=== PATIENT | male | born 1970 | race Caucasian/White ===

== ENCOUNTER → 2025-04-05 15:14 | Emergency (ER) | payer BC, SELFPAY ==
[2025-04-05 15:18] VITALS: BP 140/86; PULSE 100; RESP 20; TEMP 36.7; O2SAT 100
--- OUTSIDE RECORDS SUMMARY | 2025-04-05 15:18 | XMS_ITS | Referral Summary ---
Author Organization [facility] [address] [place] Address [address] [place] [phone] Care Team Providers Care Customer Service Operator Name Role Phone Bart Medrano MD Primary Care Provider [phone] Allergies No known active allergies Medications ALPRAZolam (XANAX) 0.5 mg tablet 12/18/2021 Active sertraline (ZOLOFT) 50 mg tablet Take 1 tablet (50 mg total) by mouth daily 30 tablet 2 01/17/2022 Active omeprazole (PriLOSEC) 40 mg capsule TAKE 1 CAPSULE (40 MG TOTAL) BY MOUTH DAILY. 90 capsule 1 12/16/2022 Active Active Problems Problem Noted Date Diagnosed Date Gastroesophageal reflux disease without esophagi tis 01/17/2022 Chronic left shoulder pain 01/17/2022 JUJU (generalized anxiety disorder) 01/17/2022 Immunizations Immunization Administration Dates Next Due Influenza, Unspecified 02/14/2022(Deferr ed: Patient Refused),01/17/2022(Deferred: Patient Refused),12/20/2021(Deferred: Patient Refused),11/24/2020(Deferred: Patient Refused),11/24/2020(Deferred: Patient Refused),11/24/2020(Deferred: Patient Refused) Social History Tobacco Use Types Packs/Day Years Used Date Smoking Tobacco: Never PHQ-2 Answer Date Recorded PHQ-2 Total Score (If total score is 3 or more points, staff should administer the PHQ-9) 0 01/17/2022 Personal Safety Answer Date Recorded Getting School Help Needed Not on file 02/07 Sex and Gender Information Value Date Recorded Sex Assigned at Not on file Legal Sex Male 10:56 AM BENCH CHEMIST Gender Identity Not on file Sexual Orientation Not on file Last Filed Vital Signs Vital Sign Reading Time Taken Comments Blood Pressure 126/78 01/17/2022 10:22 AM BENCH CHEMIST Pulse 67 01/17/2022 10:22 AM BENCH CHEMIST Temperature 36.9 C (98.5 F) 01/17/2022 10:22 AM BENCH CHEMIST Respiratory Rate - - Oxygen Saturation 98% 01/17/2022 10:22 AM BENCH CHEMIST Inhaled Oxygen Concentration - - Weight 75.8 kg (167 lb 3.2 oz) 01/17/2022 10:22 AM BENCH CHEMIST Height 167.6 cm (5' 6 ) 01/17/2022 10:22 AM BENCH CHEMIST Body Mass Index 26.99 01/17/2022 10:22 AM BENCH CHEMIST Plan of Treatment Not on file Insurance Care Teams Customer Service Operator Relationship Specialty Start Date End Date Bart Medrano MD PCP - General Family Medicine 12/13/21
--- OUTSIDE RECORDS SUMMARY | 2025-04-05 15:18 | XMS_ITS | Clinical Summary ---
Author Organization [facility] [address] [place] Address [address] [place] [phone] Care Team Providers Care Machinery Mechanic Name Role Phone Bart Medrano MD Primary Care Provider [phone] Allergies No known active allergies Medications ALPRAZolam [...] Refused),11/24/2020(Deferred: Patient Refused),11/24/2020(Deferred: Patient Refused),11/24/2020(Deferred: Patient Refused) Medical History Medical History Date Comments Anxiety Acid reflux Family History Medical History Relation Name Comments Heart disease Father Relation Name Status Comments Brother Alive Father Alive Mother Alive Sister Alive Social History Tobacco Use Types Packs/Day Years [...] on file Legal Sex Male 10:56 AM NUCLEAR CHEMISTRY TECHNICIAN Gender Identity Not on file Sexual Orientation Not on file Obstetrics History Last Filed Vital Signs Vital Sign Reading Time Taken Comments Blood Pressure 126/78 01/17/2022 10:22 AM NUCLEAR CHEMISTRY TECHNICIAN Pulse 67 01/17/2022 10:22 AM NUCLEAR CHEMISTRY TECHNICIAN Temperature 36.9 C (98.5 F) 01/17/2022 10:22 AM NUCLEAR CHEMISTRY TECHNICIAN Respiratory Rate - - Oxygen Saturation 98% 01/17/2022 10:22 AM NUCLEAR CHEMISTRY TECHNICIAN Inhaled Oxygen Concentration - - Weight 75.8 kg (167 lb 3.2 oz) 01/17/2022 10:22 AM NUCLEAR CHEMISTRY TECHNICIAN Height 167.6 cm (5' 6 ) 01/17/2022 10:22 AM NUCLEAR CHEMISTRY TECHNICIAN Body Mass Index 26.99 01/17/2022 10:22 AM NUCLEAR CHEMISTRY TECHNICIAN Plan of Treatment Not on file Insurance Care Teams Machinery Mechanic Relationship Specialty Start Date End Date Bart Medrano MD PCP - General Family Medicine 12/13/21
--- OUTSIDE RECORDS SUMMARY | 2025-04-05 15:18 | XMS_ITS | Clinical Summary ---
Author Organization [facility] Address [address] [address] Phone Care Team Providers Care Technical Services Consultant Name Role Phone Chintan Ramirez MD Primary Care Provider [phone] Allergies No known active allergies Medications No known medications Encounters Date Type Department Care Team Description 02/21/2025 4:00 PM CDT - 02/21/2025 11:59 PM CDT Hospital Encounter [facility] Cardiology Services [address] [place] [id number] Chintan Ramirez MD Discharge Disposition: Discharged to home or Selfcare 02/21/2025 Travel 01/17/2025 Transcribe Orders [facility] Central [facility]uling [address] [place] [id number] Chintan Ramirez MD Cardiac murmur (Primary Dx) from Last 3 Months Family History Medical History Relation Name Comments Hypertension Father Hypertension Mother Relation Name Status Comments Father Mother Alive Social History Tobacco Use Types Packs/Day Years Used Date Smoking Tobacco: Never Smokeless Tobacco: Never Tobacco Cessation:Counseling Given: Not Answered Alcohol Use Standard Drinks/Week Comments Not Currently 0 (1 standard drink = 0.6 oz pur e alcohol) Sex and Gender Information Value Date Recorded Sex Assigned at Not on file Legal Sex Male 9:33 AM CDT Gender Identity Not on file Sexual Orientation Not on file Last Filed Vital Signs Vital Sign Reading Time Taken Comments Blood Pressure - - Pulse - - Temperature - - Respiratory Rate - - Oxygen Saturation - - Inhaled Oxygen Concentration - - Weight 72.6 kg (160 lb) 12/02/2024 2:52 PM DEDICATED INTERMODAL TRUCK DRIVER Height 167.6 cm (5' 6 ) 12/02/2024 2:52 PM DEDICATED INTERMODAL TRUCK DRIVER Body Mass Index 25.82 12/02/2024 2:52 PM DEDICATED INTERMODAL TRUCK DRIVER Plan of Treatment Health Maintenance Due Date Last Done Comments Hepatitis C Virus (HCV) Screening 1970 TdaP Immunization 1970 Hepatitis B Immunization (1 of 3 - 19+ 3-dose series) 1991 Colonoscopy 2017 Colorectal Cancer Screening 2017 Cologuard 2022 Immunochemical Fecal Occult Blood 2022 Pneumococcal Immunization (5 0+ years) (1 of 1 - PCV) 2022 Zoster Immunization (1 of 2) 2022 SARS-COV-2 Immunization (1 - 2023- season) 2024 Influenza Immunization (Seas on Ended) 2025 Respiratory Syncytial Virus (RSV) Immunization (Adult) (1 - 1-dose 75+ series) 2047 Meningococcal Immunization (ACWY) Aged Out No longer eligible based on patient's age to complete this topic Rotavirus Immunization Aged Out No lo nger eligible based on patient's age to complete this topic Procedures Procedure Name Priority Date/Time Associated Diagnosis Comments ADULT TRANS THORACIC ECHO 2D COMPLETE Routine 02/21/2025 4:54 PM CDT Cardiac murmur from Last 3 Months Results * ADULT TRANS THORACIC ECHO 2D COMPLETE (02/21/2025 4:54 PM CDT) AV Peak Grad mmHg 16.16 mmHg RESULTING AGENCY Mean Aortic Valve Gradient (MAVG) 9 mmHg RESULTING AGENCY LV end emile diam cm 4.4 cm RESULTING AGENCY LV end sys diam cm 2.8 cm RESULTING AGENCY Aortic Root Diam cm 2.8 cm RESULTING AGENCY LA vol index ml/m2 31 ml/m2 RESULTING AGENCY LVOT Peak Hao m/sec 1.3 m/sec RESULTING AGENCY AV Peak Hao m/sec 2.01 m/sec RESULTING AGENCY MV Mean Grad mmHg 1 mmHg RESULTING AGENCY E/A Ratio 1.1 RESULTING AGENCY E/E' 7.8 RESULTING AGENCY AV Area (VTI) cm2 2.23 cm2 RESULTING AGENCY SEPTUM DIASTOLIC CM 1.1 cm RESULTING AGENCY PW DIASTOLIC CM 1.1 cm RESU LTING AGENCY LA VOLUME 56.7 ml RESULTING AGENCY LV EF(estimated)% 58 RESULTING AGENCY Anatomical Region Laterality Modality CARDIO N/A Ultrasound Narrative 02/22/2025 3:46 PM CDT Transthoracic Echocardiography Report (TTE) Patient name GARY Chester 1970 Patient ID (I) [id number] Indications: Heart murmur. Study Date02/21/2025 Technical quality: Adequate Type of Study: TTE procedure: Adult Trans Thoracic Echo 2D Complete. Priority:RoutineHR: 65 bpmBP: 122/80 mmHg Conclusions Summary The left ventricle is normal in size. Wall thickness is normal. LV function is normal. There are no regional wall motion abnormalities. LV EF of 55-60%. Normal LV diastolic function. Findings Mitral Valve The mitral valve is normal. There is no evidence of mitral stenosis. Trace mitral regurgitation is present. Aortic Valve The aortic valve is trileaflet with normal leaflet excursion. Calcified aortic valve. There is no evidence of aortic valve stenosis. There is no significant aortic valve insufficiency. Tricuspid Valve The tricuspid valve is normal. There is no evidence of tricuspid stenosis. Trace tricuspid valve regurgitation. Insufficient TR jet to estimate PASP. Pulmonic Valve The pulmonic valve structure appears normal. There is no evidence of pulmonic stenosis. There is no significant pulmonic valve regurgitation. Left Atrium The left atrium size is normal. Left Ventricle The left ventricle is normal in size. Wall thickness is normal. LV function is normal. There are no regional wall motion abnormalities. LV EF of 55-60%. Normal LV diastolic function. Right Atrium Right atrium is borderline enlarged in size. Right Ventricle Normal right ventricular cavity size and normal systolic function. Pericardial Effusion The pericardium is normal. There is no pericardial effusion visualized. Miscellaneous Aortic root and proximal ascending aorta are normal in size. Atrial septum appears intact. IVC is normal in size and respiratory response. Valves Mitral Valve Peak E-Wave: 0.91 m/s Area (continuity): 2.87 cm^2 Peak A-Wave: 0.82 m/s Mean Velocity: 0.55 m/s Peak Gradient: 3.33 mmHg Mean Gradient: 1 mmHg Deceleration Time: 187 msec Tissue Doppler E' Velocity: 0.11 m/s E/E':7.8 E/A Ratio: 1.1 E/Lat E': 7.8 E/Med E':8.3 Aortic Valve Area (continuity): 2.23 cm^2 Mean Velocity: 1.36 m/s Area (VTI):2.23 cm^2 Mean Gradient: 9 mmHg Peak Velocity: 2.01 m/s AV VTI: 37.1 cm Peak Gradient: 16.16 mmHg Tricuspid Valve Peak E-Wave: 0.56 m/s Peak Gradient: 1.26 mmHg Pulmonic Valve Peak Velocity: 1.25 m/s Mean Velocity: 0.81 m/s Peak Gradient: 6.25 mmHg Mean Gradient: 3 mmHg LVOT Peak Velocity: 1.3 m/s Mean Velocity: 0.89 m/s Peak Gradient: 7 mmHg Mean Gradient: 4 mmHg LVOT Diameter: 2 cm LVOT VTI: 26.4 cm Stroke Volume: 83 ml Stroke Volume Index: 45.6 ml/m^2 Structures Left Ventricle Diastolic Dimension: 4.4 cm Systolic Dimension: 2.8 cm Septum Diastolic: 1.1 cm PW Diastolic: 1.1 cm Systolic Length: 14.1 cm Diastolic Length: 24.1 cm CI: 2.96 l/min*m^2 EF Calculated: 58.56% CO: 5.39 l/min RWT: 0.5 LV EDV: 65.4 ml LV EDV Index: 36 m^2 FS: 36.36 % LV ESV: 27.1 ml LV Length: 7.52 cm LV ESV Index: 15 m^2 LVOT Diameter: 2 cm Global Longitudinal Strain:-13.5 Right Ventricle RVOT (PLAX) diameter:3.5 cm Tissue Doppler RV S': 14.8 TAPSE: 2.29 cm Left Atrium LA Systolic Pressure: 11.74 mmHg LA Area: 20.6 cm^2 LA Volume: 56.7 ml LA Index: 31ml/m^2 Right Atrium RA Area: 14.7 cm^2 Great Vessels Aorta Ascending Aorta: 3.2 cm Aorta Root:2.8 cm Ascending Aorta Index:1.76 cm/m^2 Demographics Age 54 Gender Male Race Height 65.98 in. Weight 160.01 lbs. BMI (BSA) 25.84 kg/m^2 (1.82 m^2) Toolmaker Grade Three Isabelle Hannon Interpreting [place] Lau Referring Physician Padmini VOSS Physician Chidi Martínez Procedure Note Mauricio Murillo MD - 02/22/2025 Transthoracic Echocardiography Report (TTE) Patient name GARY Chester 1970 Patient ID (UPI) [id number] Indications: Heart murmur. Study Date02/21/2025 Technical quality: Adequate Type of Study: TTE procedure: Adult Trans Thoracic Echo 2D Complete. Priority:RoutineHR: 65 bpmBP: 122/80 mmHg Conclusions Summary The left ventricle is normal in size. Wall thickness is normal. LV function is normal. There are no regional wall motion abnormalities. LV EF of 55-60%. Normal LV diastolic function. Findings Mitral Valve The mitral valve is normal. There is no evidence of mitral stenosis. Trace mitral regurgitation is present. Aortic Valve The aortic valve is trileaflet with normal leaflet excursion. Calcified aortic valve. There is no evidence of aortic valve stenosis. There is no significant aortic valve insufficiency. Tricuspid Valve The tricuspid valve is normal. There is no evidence of tricuspid stenosis. Trace tricuspid valve regurgitation. Insufficient TR jet to estimate PASP. Pulmonic Valve The pulmonic valve structure appears normal. There is no evidence of pulmonic stenosis. There is no significant pulmonic valve regurgitation. Left Atrium The left atrium size is normal. Left Ventricle The left ventricle is normal in size. Wall thickness is normal. LV function is normal. There are no regional wall motion abnormalities. LV EF of 55-60%. Normal LV diastolic function. Right Atrium Right atrium is borderline enlarged in size. Right Ventricle Normal right ventricular cavity size and normal systolic function. Pericardial Effusion The pericardium is normal. There is no pericardial effusion visualized. Miscellaneous Aortic root and proximal ascending aorta are normal in size. Atrial septum appears intact. IVC is normal in size and respiratory response. Valves Mitral Valve Peak E-Wave: 0.91 m/s Area (continuity): 2.87 cm^2 Peak A-Wave: 0.82 m/s Mean Velocity: 0.55 m/s Peak Gradient: 3.33 mmHg Mean Gradient: 1 mmHg Deceleration Time: 187 msec Tissue Doppler E' Velocity: 0.11 m/s E/E':7.8 E/A Ratio: 1.1 E/Lat E': 7.8 E/Med E':8.3 Aortic Valve Area (continuity): 2.23 cm^2 Mean Velocity: 1.36 m/s Area (VTI):2.23 cm^2 Mean Gradient: 9 mmHg Peak Velocity: 2.01 m/s AV VTI: 37.1 cm Peak Gradient: 16.16 mmHg Tricuspid Valve Peak E-Wave: 0.56 m/s Peak Gradient: 1.26 mmHg Pulmonic Valve Peak Velocity: 1.25 m/s Mean Velocity: 0.81 m/s Peak Gradient: 6.25 mmHg Mean Gradient: 3 mmHg LVOT Peak Velocity: 1.3 m/s Mean Velocity: 0.89 m/s Peak Gradient: 7 mmHg Mean Gradient: 4 mmHg LVOT Diameter: 2 cm LVOT VTI: 26.4 cm Stroke Volume: 83 ml Stroke Volume Index: 45.6 ml/m^2 Structures Left Ventricle Diastolic Dimension: 4.4 cm Systolic Dimension: 2.8 cm Septum Diastolic: 1.1 cm PW Diastolic: 1.1 cm Systolic Length: 14.1 cm Diastolic Length: 24.1 cm CI: 2.96 l/min*m^2 EF Calculated: 58.56% CO: 5.39 l/min RWT: 0.5 LV EDV: 65.4 ml LV EDV Index: 36 m^2 FS: 36.36 % LV ESV: 27.1 ml LV Length: 7.52 cm LV ESV Index: 15 m^2 LVOT Diameter: 2 cm Global Longitudinal Strain:-13.5 Right Ventricle RVOT (PLAX) diameter:3.5 cm Tissue Doppler RV S': 14.8 TAPSE: 2.29 cm Left Atrium LA Systolic Pressure: 11.74 mmHg LA Area: 20.6 cm^2 LA Volume: 56.7 ml LA Index: 31ml/m^2 Right Atrium RA Area: 14.7 cm^2 Great Vessels Aorta Ascending Aorta: 3.2 cm Aorta Root:2.8 cm Ascending Aorta Index:1.76 cm/m^2 Demographics Age 54 Gender Male Race Height 65.98 in. Weight 160.01 lbs. BMI (BSA) 25.84 kg/m^2 (1.82 m^2) Toolmaker Grade Three Isabelle Hannon Interpreting [place] Lau Referring Physician Padmini VOSS Physician Chidi Martínez us Chintan Ramirez MD IMG ECHO ORDERABLES Edited Re sult - Final from Last 3 Months Insurance MEDICAID [place] Care Teams Technical Services Consultant Relationship Specialty Start Date End Date Chintan Ramirez MD [address] [place] [address] PCP - General Internal Medicine 08/12/24
--- NOTE | 2025-04-05 16:29 | ED_ITS ---
HPI - Nausea/Vomiting/Diarrhea General Chief complaint: Nausea/Vomiting/Diarrhea Stated complaint: black diarrhea last night Time Seen by Provider: 04/05/25 16:31 History of Present Illness HPI Narrative: 54-year-old male presents to the emergency department for diarrhea that started in the middle the night. Patient states he went to bed in his normal state of health woke up at 1:00 a.m. with diarrhea. He took Pepto-Bismol around 2:00 a.m. and states after his stool turned black. He went to urgent care this morning around 11:00 a.m. because he thought he had norovirus and was advised to come to the ED due to concerns for GI bleed. Upon arrival to the ED the patient states his stools have lightened up and are much more firm. He states he believes he has norovirus because his daughter recently had it. He states overall he feels much better. He denies abdominal pain, fever, nausea or vomiting, hematochezia, history of GI bleeds, ETOH use. States he had a guaiac test outpatient performed a month ago was negative. Patient states he does not wish to be in the ER and does not want any workup. He states he only came to appease his . He is drinking Sprite in the exam room. Related Data Allergies Allergy/AdvReac Type Severity Reaction Status Date / Time No Known Allergies Allergy Verified 04/05/25 15:15 Review of Systems Review of Systems: All systems reviewed & are unremarkable except as noted in HPI and below Exam Narrative: GENERAL: Well-appearing, well-nourished, and in no acute distress. HEAD: Normocephalic, atraumatic. EYES: PERRLA and EOMI. ENT: Nares clear, no rhinorrhea or epistaxis. Mucous membranes moist. NECK: Supple. CHEST: Clear to auscultation. No respiratory distress. HEART: Regular rate and rhythm. No murmur heard. Normal peripheral pulses. ABDOMEN: Soft, nontender, nondistended, normal active bowel sounds. No rebound, guarding or rigidity. No CVA tenderness EXTREMITIES: Normal range of motion. No edema. SKIN: Warm, dry, no rash. NEURO: No focal deficits. Alert and oriented x3 Course Vital Signs Vital signs: Vital Signs Temperature 98.1 F 04/05/25 15:18 Pulse Rate 100 04/05/25 15:18 Respiratory Rate 20 04/05/25 15:18 Blood Pressure 140/86 04/05/25 15:18 Pulse Oximetry 100 04/05/25 15:18 Oxygen Delivery Room Air 04/05/25 15:18 Temperature 98.1 F 04/05/25 15:18 Pulse Rate 100 04/05/25 15:18 Respiratory Rate 20 04/05/25 15:18 Blood Pressure 140/86 04/05/25 15:18 Pulse Oximetry 100 04/05/25 15:18 Oxygen Delivery Room Air 04/05/25 15:18 MDM - Nausea/Vomiting/Diarrhea MDM Narrative Medical decision making narrative: 54-year-old male presents to the emergency department for diarrhea. Patient went to bed last night in his normal state health, woke up at 1:00 a.m. with diarrhea. Took Pepto-Bismol and shortly after began having dark stools. He went to urgent care this morning was advised to come to the ED due to concerns for possible GI bleed. Upon arrival to the ED the patient states his stools have lightened up on our much more firm. He denies abdominal pain, fever, nausea or vomiting. States overall he feels better does not wish to be in the ER. He states he has taken Pepto several times in the past and each time return to stools dark. He states his symptoms feel like that of a stomach bug or norovirus and that his daughter recently got over the norovirus. He is drinking Sprite in the exam room. I did offer to obtain lab work including a CBC to evaluate his hemoglobin and performed a fecal occult, however patient declined. Again he states the stools are no longer dark and are now more formed. He is requesting to be discharged. Feel this is reasonable given his vitals are stable and he is otherwise well appearing, abdomen is soft and nontender. He was given strict ED return precautions. He is agreeable with the plan verbalized understanding. Discharged in stable condition. Discharge Plan Discharge Clinical Impression: Diarrhea Qualifiers: Diarrhea type: unspecified type Qualified Code(s): R19.7 - Diarrhea, unspecified Patient Disposition: Home Condition: Stable Instructions: Antibiotic Form, Acute Diarrhea (ED) Additional Instructions: Your evaluated in the emergency department after urgent care recommended due to come here for dark stools after taking pepto. After discussing with you, you said your stools are no longer dark and brown having any abdominal pain. We discussed obtaining lab work to ensure you are not having a GI bleed however you politely declined. Please make sure to drink plenty of fluids and follow up with her primary care provider. Return to the emergency department if you do develop dark stools, blood in her stool, abdominal pain, fever, lightheadedness, loss of consciousness, chest pain or shortness of breath, or other concerning symptoms. Patient Language: Belarusian Follow-up/Referrals: James,MD Chintan [Primary Care Provider] -
--- NOTE | 2025-04-05 16:34 | PC.NURSE ---
Pt assessed by Martha LUU, decided he did want any further evaluation
--- OUTSIDE RECORDS SUMMARY | 2025-04-05 16:38 | XMS_ITS | Clinical Summary ---
Author Organization [facility] Address [address] [address] Phone Care Team Providers Care Pulpwood Contractor Name Role Phone Chintan Ramirez MD Primary Care Provider [phone] Allergies No known active allergies Medications No known medications Encounters Date Type Department Care Team Description 02/21/2025 4:00 PM CDT - 02/21/2025 11:59 PM CDT Hospital Encounter [facility] Cardiology Services [address] [place] [id number] Chintan Ramirez MD Discharge Disposition: Discharged to home or Selfcare 02/21/2025 Travel 01/17/2025 [facility] [address] [place] [id number] Chintan Ramirez MD Cardiac murmur (Primary Dx) [...] 72.6 kg (160 lb) 12/02/2024 2:52 PM FIELD SERVICE ANALYST Height 167.6 cm (5' 6 ) 12/02/2024 2:52 PM FIELD SERVICE ANALYST Body Mass Index 25.82 12/02/2024 2:52 PM FIELD SERVICE ANALYST Plan of Treatment Health Maintenance Due Date [...] name GARY Chester 1970 Patient ID (I) [id number] Indications: Heart murmur. Study Date02/21/2025 Technical quality: [...] lbs. BMI (BSA) 25.84 kg/m^2 (1.82 m^2) Refractory Grinder Operator Isabelle Hannon Interpreting [place] Lau Referring Physician Padmini VOSS Physician Chidi Martínez Procedure Note Mauricio Murillo MD - 02/22/2025 Transthoracic Echocardiography Report (TTE) Patient name GARY Chester 1970 Patient ID (UPI) [id number] Indications: Heart murmur. Study Date02/21/2025 Technical quality: [...] lbs. BMI (BSA) 25.84 kg/m^2 (1.82 m^2) Refractory Grinder Operator Isabelle Hannon Interpreting [place] Lau Referring Physician Padmini VOSS Physician Chidi Martínez us Chintan Ramirez MD IMG ECHO ORDERABLES Edited Re sult - Final from Last 3 Months Insurance MEDICAID [place] Care Teams Pulpwood Contractor Relationship Specialty Start Date End Date Chintan Ramirez MD [address] [place] [address] PCP - General Internal Medicine 08/12/24
--- OUTSIDE RECORDS SUMMARY | 2025-04-05 16:38 | XMS_ITS | Referral Summary ---
Author Organization [facility] [address] [place] Address [address] [place] [phone] Care Team Providers Care Processing Clerk Name Role Phone Bart Medrano MD Primary Care Provider [phone] Allergies No known active allergies Medications ALPRAZolam [...] on file Legal Sex Male 10:56 AM FIRST COOK Gender Identity Not on file Sexual Orientation Not on file Last Filed Vital Signs Vital Sign Reading Time Taken Comments Blood Pressure 126/78 01/17/2022 10:22 AM FIRST COOK Pulse 67 01/17/2022 10:22 AM FIRST COOK Temperature 36.9 C (98.5 F) 01/17/2022 10:22 AM FIRST COOK Respiratory Rate - - Oxygen Saturation 98% 01/17/2022 10:22 AM FIRST COOK Inhaled Oxygen Concentration - - Weight 75.8 kg (167 lb 3.2 oz) 01/17/2022 10:22 AM FIRST COOK Height 167.6 cm (5' 6 ) 01/17/2022 10:22 AM FIRST COOK Body Mass Index 26.99 01/17/2022 10:22 AM FIRST COOK Plan of Treatment Not on file Insurance Care Teams Processing Clerk Relationship Specialty Start Date End Date Bart Medrano MD PCP - General Family Medicine 12/13/21
--- OUTSIDE RECORDS SUMMARY | 2025-04-05 16:38 | XMS_ITS | Clinical Summary ---
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 Gender Identity Not on file Sexual Orientation Not on file Obstetrics History Last Filed Vital Signs Vital Sign Reading Time Taken Comments Blood Pressure 126/78 01/17/2022 10:22 AM MECHANICAL DEVELOPMENT ENGINEER Pulse 67 01/17/2022 10:22 AM MECHANICAL DEVELOPMENT ENGINEER Temperature 36.9 C (98.5 F) 01/17/2022 10:22 AM MECHANICAL DEVELOPMENT ENGINEER Respiratory Rate - - Oxygen Saturation 98% 01/17/2022 10:22 AM MECHANICAL DEVELOPMENT ENGINEER Inhaled Oxygen Concentration - - Weight 75.8 kg (167 lb 3.2 oz) 01/17/2022 10:22 AM MECHANICAL DEVELOPMENT ENGINEER Height 167.6 cm (5' 6 ) 01/17/2022 10:22 AM MECHANICAL DEVELOPMENT ENGINEER Body Mass Index 26.99 01/17/2022 10:22 AM MECHANICAL DEVELOPMENT ENGINEER Plan of Treatment Not on file Insurance Care Teams Dressmaker Garment Fitter Relationship Specialty Start Date End Date Bart Medrano MD PCP - General Family Medicine 12/13/21
== END | disposition home or self-care (01) ==
PROVIDERS: Emergency Provider Physician Assistant; PCP Internal Medicine
DX: R19.7 Diarrhea, unspecified (principal)
CPT/HCPCS: 99281